=== PATIENT | female | born 1995 | race African-American/Black ===

== ENCOUNTER 2024-02-01 12:26 | Emergency (ER) | payer MEDICAID, OTHER, SELFPAY ==
[2024-02-01 16:33] LABS: HEMATOCRIT 38.2 % (36.0-47.0); HEMOGLOBIN 13.3 g/dl (12.0-15.5); MEAN CORPUSCULAR HEMOGLOBIN 27.3 pg (27.0-33.0); MEAN CORPUSCULAR HGB CONC 34.8 g/dl (32.0-36.5); MEAN CORPUSCULAR VOLUME 78.4 fl (80.0-96.0); PLATELET COUNT, AUTOMATED 256 10^3/uL (150-450); RED BLOOD COUNT 4.87 10^6/uL (4.00-5.40)
[2024-02-01 16:43] LABS: HCG, SERUM QUALITATIVE NEGATIVE (NEGATIVE)
[2024-02-01 16:44] LABS: BLOOD UREA NITROGEN 11 MG/DL (9-23); CALCIUM LEVEL 9.5 MG/DL (8.5-10.1); CARBON DIOXIDE LEVEL 28 MMOL/L (20-31); CHLORIDE LEVEL 103 MMOL/L (98-107); CREATININE FOR GFR 0.78 MG/DL (0.55-1.30); GLOMERULAR FILTRATION RATE > 60.0 (>60); GLUCOSE, FASTING 88 MG/DL (60-100); SODIUM LEVEL 136 MMOL/L (136-145)
[2024-02-01 16:46] LABS: FREE T4 1.01 NG/DL (0.89-1.76)
[2024-02-01 16:47] LABS: THYROID STIMULATING HORMONE 1.525 uIU/ML (0.55-4.78)
[2024-02-01 17:05] VITALS: BP 121/77; TEMP 97.9; O2SAT 99
== END 2024-02-01 17:05 | disposition home or self-care (01) ==
LOC: M ED 12:26
DX: E04.1 Nontoxic single thyroid nodule (principal); M79.2 Neuralgia and neuritis, unspecified; R13.11 Dysphagia, oral phase; R50.9 Fever, unspecified; R05.9 Cough, unspecified